=== PATIENT | male | born 1990 | race Caucasian/White ===

== ENCOUNTER 2017-07-16 15:39 | Emergency (ER) | payer SELFPAY ==
[2017-07-16 15:43] VITALS: BP 164/97
--- NOTE | 2017-07-16 16:14 | DR.GENAD ---
HPI - PCP Primary Care Physician: NFD - HPI Comment HPI Comment: WEAK, INCREASE URINATION AND THIRST AND LOWER BACK AND ABDOMINAL DISCOMFORT.RT EAR PAIN WITH DIZZINESS AND HEADACHE. SYMTOMS WORSE TODAY. PATIENT IS ALSO COUGHING WITH MINIMAL SPUTUM. - Complaint/Symptoms Chief Complaint Doctors Comments: ELEVATED BLOOD GLUCOSE, RT EAR PAIN AND POSSIBLE UTI TIMES 5 DAYS. Chief Complaint:: PT. STATES HIS BLOOD SUGAR GOT OUT OF "WACK" LAST WEEK AND HE GOT A UTI. PT. ALSO C/O INNER EAR INFECTION, DIZZINESS, WEAKNESS, AND NAUSEA. - Nurses notes reviewed Nurses Notes Review: Yes - Source History Provided: Patient - Mode of Arrival Mode of Arrival: Ambulatory - Timing Onset of Chief Complaint: 07/11/17 Came on: Gradually - Duration Duration: Constant Duration: Days - Severity Severity: Moderate PMH - PMH Past Medical History: Yes Past Medical History: Diabetes Past Surgical History: Yes Surgical History: Ortho Surgery, Tonsillectomy, Other Past Surgical History Comment: TUBES IN EARS, ADENOIDS - Family History History of Family Medical Conditions: Yes Family Medical History: Diabetes Mellitus, Coronary Artery Disease - Social History Does patient currently use any type of tobacco product: Yes Have you used tobacco products in the last 12 months: Yes Type of Tobacco Use: Cigarettes Does any household member use tobacco: Yes Alcohol Use: Rarely Do you use any recreational Drugs:: No Lives With: Significant Other Lives Where: Home - infectious screening In the last 2 months have you had wt loss of >10#?: NO Have you had fever, night sweats or hemotysis?: No Have you traveled outside the country in the last 6 months?: No Isolation: Standard ROS - Review of Systems Constitutional: Weakness, Fatigue. negative: Chills, Fever Eyes: negative: Eye Pain, Discharge ENTM: Ear Pain, Nose Congestion. negative: Ear Discharge, Hearing Loss, Nose Discharge, Throat Pain Respiratoy: Productive Cough. negative: Short of Breath, Wheezing, Hemoptysis Cardiovascular: negative: Palpitations, Syncope Gastrointestinal/Abdominal: Abdominal Pain, Nausea Genitourinary: Frequency. negative: Hematuria Neurological: Headache, Weakness Musculoskeletal: Back Pain Integumentary: No Symptoms Reported Hematologic/Lymphatic: No Symptoms Reported Endocrine: Increased Thirst, Increased Urine. negative: Flushing All Other Systems: Reviewed and Negative PE - Vital Signs Vitals: Temperature 97.8 F Pulse Rate 108 Respiratory Rate 18 Blood Pressure 164/97 O2 Sat by Pulse Oximetry 100 - General Limitations: No Limitations General Appearance: Alert - Head Head Exam: Normal Inspection - Eyes Eye exam: Normal Appearance - ENT ENT Exam: Normal External Ear Exam External Ear Exam: Normal External Inspection TM/Canal Exam: Right Erythema, Right Canal Tenderness Nose Exam: Normal Nose Exam Mouth Exam: Normal Inspection Throat Exam: Tonsillar Erythema. negative: Tonsillomegaly, Tonsillar Exudate - Neck Neck Exam: Trachea Midline, Lymphadenopathy (RT CERVICAL POST). negative: Tenderness - Chest Chest Inspection: Symmetric Chest Wall Rise - Respiratory Respiratory Exam: Normal Lung Sounds Bilat Respiratory Exam: Bilateral Clear to Auscultation - Cardiovascular Cardiovascular Exam: Regular Rate, Normal Rhythm, Normal Heart Sounds - Abdominal Exam Abdominal Exam: Normal Bowel Sounds, Soft. negative: Tenderness - Extremities Extremities Exam: Normal Inspection - Back Back Exam: Normal Inspection - Neurologic Neurological Exam: Alert, Oriented X3, CN II-XII Intact. negative: Motor Sensory Deficit - Psychiatric Psychiatric Exam: Normal Affect, Normal Mood - Skin Skin Exam: Normal Color [facility] - Additional Information Additional Information Obtained From: Family - Differential Diagnosis Differential Diagnosis: OTITIS MEDIA, BRONCHITIS, PNEUMONIA, UTI, DKA Course - Treatment Treatment: SEE ORDERS. - Education/Counseling Education/Counseling: Patient, Education Educated On: Diagnosis, Needs for Follow Up ROR - Labs Reviewed Laboratory Results Reviewed?: Yes Result Diagrams: 07/16/17 16:30 07/16/17 16:30 Laboratory: WBC 16.3 X10^3/uL (3.6-10.0) H 07/16/17 16:30 RBC 6.31 X10^6/uL (4.7-6.0) H 07/16/17 16:30 Hgb 18.1 g/dL (13.5-18.0) H 07/16/17 16:30 Hct 52.6 % (42.0-54.0) 07/16/17 16:30 MCV 83.2 fL (80.0-100.0) 07/16/17 16:30 MCH 28.6 pg (27.0-34.0) 07/16/17 16:30 MCHC 34.4 g/dL (33.0-35.0) 07/16/17 16:30 RDW 13.6 % (11.6-16.5) 07/16/17 16:30 Plt Count 224 X10^3/uL (150.0-450.0) 07/16/17 16:30 MPV 9.5 fL (7.4-11.0) 07/16/17 16:30 Neut % 65.9 % (42.0-75.0) 07/16/17 16:30 Lymph % 23.7 % (21.0-51.0) 07/16/17 16:30 [place] % 8.9 % (0.0-13.0) 07/16/17 16:30 Eos % 0.8 % (0.9-2.9) L 07/16/17 16:30 Baso % 0.7 % (0.2-1.0) 07/16/17 16:30 Neut # 10.7 x10^3/uL (2.2-4.8) H 07/16/17 16:30 Lymph # 3.9 X10^3/uL (1.3-2.9) H 07/16/17 16:30 [place] # 1.5 x10^3/uL (0.3-0.8) H 07/16/17 16:30 Eos # 0.1 x10^3/uL (0.0-0.2) 07/16/17 16:30 Baso # 0.1 X10^3/uL (0.0-0.1) 07/16/17 16:30 Absolute Nucleated RBC 0.2 /100WBC 07/16/17 16:30 Sodium 136 mmol/L (136-145) 07/16/17 16:30 Corrected Sodium 140 mmol/L (136-145) 07/16/17 16:30 Potassium 4.0 mmol/L (3.5-5.1) 07/16/17 16:30 Chloride 99 mmol/L (98-107) 07/16/17 16:30 Carbon Dioxide 27.9 mmol/L (21-32) 07/16/17 16:30 BUN 5 mg/dL (7-18) L 07/16/17 16:30 Creatinine 0.77 mg/dL (0.70-1.30) 07/16/17 16:30 Est GFR (MDRD) Af Amer > 60 (>60) 07/16/17 16:30 Est GFR (MDRD) Non-Af > 60 (>60) 07/16/17 16:30 Glucose 249 mg/dL (65-99) H 07/16/17 16:30 Calcium 8.9 mg/dL (8.5-10.1) 07/16/17 16:30 Corrected Calcium TNP 07/16/17 16:30 Total Bilirubin 0.30 mg/dL (0.2-1.0) 07/16/17 16:30 AST 14 Units/L (15-37) L 07/16/17 16:30 ALT 42 Units/L (12-78) 07/16/17 16:30 Alkaline Phosphatase 130 Units/L (46-116) H 07/16/17 16:30 Total Protein 8.8 g/dL (6.4-8.2) H 07/16/17 16:30 Albumin 3.5 g/dL (3.4-5.0) 07/16/17 16:30 Globulin 5.3 g/dL (2.5-4.5) H 07/16/17 16:30 Albumin/Globulin Ratio 0.7 Ratio (1.1-2.1) L 07/16/17 16:30 Specimen Type Random urine 07/16/17 16:20 Urine Color Yellow (YELLOW) 07/16/17 16:20 Urine Appearance Clear (CLEAR) 07/16/17 16:20 Urine pH 5.0 (5.0 - 8.0) 07/16/17 16:20 Ur Specific [place] 1.020 (1.000-1.030) 07/16/17 16:20 Urine Protein 3+ (NEGATIVE) 07/16/17 16:20 Urine Glucose (UA) 4+ (NEGATIVE) 07/16/17 16:20 Urine Ketones 1+ (NEGATIVE) 07/16/17 16:20 Urine Occult Blood 1+ (NEGATIVE) 07/16/17 16:20 Urine Nitrite Negative (NEGATIVE) 07/16/17 16:20 Urine Bilirubin Negative (NEGATIVE) 07/16/17 16:20 Urine Urobilinogen Normal (NORMAL) 07/16/17 16:20 Ur Leukocyte Esterase Negative (NEGATIVE) 07/16/17 16:20 Urine RBC Rare /HPF (NONE SEEN) 07/16/17 16:20 Urine WBC None seen /HPF (NONE SEEN) 07/16/17 16:20 Ur Squamous Epith Cells Rare /HPF (NEGATIVE) 07/16/17 16:20 Amorphous Sediment Trace /HPF (NEGATIVE) 07/16/17 16:20 Urine Bacteria Negative /HPF (NEGATIVE) 07/16/17 16:20 Hyaline Casts Rare /LPF (NEGATIVE) 07/16/17 16:20 Ur Culture Indicated? No/not indicated 07/16/17 16:20 Acetone, Semi-Quant Negative (NEGATIVE) 07/16/17 16:30 - XRAY XRAY Interpreted by: Radiologist XRAY Findings: REPORT DISCUSS WITH PATIENT. - Diagnosis Discharge Problem: Bronchitis Otitis media Qualifiers: Otitis media type: suppurative Chronicity: acute Laterality: right Recurrence: not specified as recurrent Spontaneous tympanic membrane rupture: without spontaneous rupture Qualified Code(s): H66.001 - Acute suppurative otitis media without spontaneous rupture of ear drum, right ear - Discharge Plan Disposition: 01 HOME, SELF-CARE Condition: Stable Prescriptions: Amoxicillin & Pot Clavulanate [AUGMENTIN TAB 875 mg/125 mg *] 1 tab PO BID #20 tab - Follow ups/Referrals Follow ups/Referrals: NFD,None [Primary Care Provider] - 3 days - Instructions Instructions: Otitis Media, Adult, [id number], Acute Bronchitis Additional Instructions: RETURN TO ED IF WORSE.
[2017-07-16 16:41] LABS: BASOPHILS # (AUTO) 0.1 X10^3/uL (0.0-0.1); BASOPHILS % (AUTO) 0.7 % (0.2-1.0); EOSINOPHILS # (AUTO) 0.1 x10^3/uL (0.0-0.2); EOSINOPHILS % (AUTO) 0.8 % (0.9-2.9); HEMATOCRIT 52.6 % (42.0-54.0); HEMOGLOBIN 18.1 g/dL (13.5-18.0); LYMPHOCYTES # (AUTO) 3.9 X10^3/uL (1.3-2.9); LYMPHOCYTES % (AUTO) 23.7 % (21.0-51.0); MEAN CORPUSCULAR HEMOGLOBIN 28.6 pg (27.0-34.0); MEAN CORPUSCULAR HGB CONC 34.4 g/dL (33.0-35.0); MEAN CORPUSCULAR VOLUME 83.2 fL (80.0-100.0); MEAN PLATELET VOLUME 9.5 fL (7.4-11.0); MONOCYTES # (AUTO) 1.5 x10^3/uL (0.3-0.8); MONOCYTES % (AUTO) 8.9 % (0.0-13.0); NEUTROPHILS # (AUTO) 10.7 x10^3/uL (2.2-4.8); NEUTROPHILS % (AUTO) 65.9 % (42.0-75.0); PLATELET COUNT 224 X10^3/uL (150.0-450.0); RED BLOOD COUNT 6.31 X10^6/uL (4.7-6.0); RED CELL DISTRIBUTION WIDTH 13.6 % (11.6-16.5); WHITE BLOOD COUNT 16.3 X10^3/uL (3.6-10.0)
--- NOTE | 2017-07-16 16:54 | RAD ---
HISTORY: Subacute nonproductive cough Study: PA and lateral chest Comparison: None Findings: The heart is normal. The lungs are clear. Thoracic spondylosis is noted. IMPRESSION: No acute cardiopulmonary disease. Reported By:
[2017-07-16 17:08] LABS: ALANINE AMINOTRANSFERASE 42 Units/L (12-78); ALBUMIN 3.5 g/dL (3.4-5.0); ALKALINE PHOSPHATASE 130 Units/L (46-116); ASPARTATE AMINO TRANSFERASE 14 Units/L (15-37); BLOOD UREA NITROGEN 5 mg/dL (7-18); CALCIUM 8.9 mg/dL (8.5-10.1); CARBON DIOXIDE 27.9 mmol/L (21-32); CHLORIDE 99 mmol/L (98-107); COR NA(FOR HYPERGLY) 140 mmol/L (136-145); CREATININE 0.77 mg/dL (0.70-1.30); SODIUM 136 mmol/L (136-145); TOTAL PROTEIN 8.8 g/dL (6.4-8.2); eGFR BLACK RACES > 60 (>60); eGFR NON BLACK RACES > 60 (>60)
[2017-07-16 17:10] LABS: SERUM ACETONE NEGATIVE (NEGATIVE)
[2017-07-16 17:13] LABS: APPEARANCE,URINE CLEAR (CLEAR); BILIRUBIN,URINE NEGATIVE (NEGATIVE); BLOOD/HEMOGLOBIN,URINE 1+ (NEGATIVE); COLOR,URINE YELLOW (YELLOW); GLUCOSE, URINE 4+ (NEGATIVE); KETONES,URINE 1+ (NEGATIVE); LEUKOCYTE ESTERASE ,URINE NEGATIVE (NEGATIVE); NITRITES,URINE NEGATIVE (NEGATIVE); PROTEIN,URINE 3+ (NEGATIVE); UROBILINOGEN,URINE NORMAL (NORMAL)
[2017-07-16 17:31] LABS: BACTERIA,URINE NEGATIVE /HPF (NEGATIVE); RBC,URINE RARE /HPF (NONE SEEN); SQUAMOUS EPITHELIAL CELL,UR RARE /HPF (NEGATIVE)
[2017-07-16 17:32] LABS: AMORPHOUS SEDIMENT,UR TRACE /HPF (NEGATIVE); HYALINE CASTS, URINE RARE /LPF (NEGATIVE)
[2017-07-16] MEDS ORDERED: ROCEPHIN VIAL 1 GM IM ONE (17:38)
[2017-07-16] MEDS ORDERED: ROCEPHIN VIAL 1 GM ONE (17:40)
[2017-07-16] MEDS ORDERED: XYLOCAINE 1 % (PLAIN) ONE (17:41)
== END 2017-07-16 17:54 | disposition home or self-care (01) ==
LOC: ER 15:48
DX: J40 Bronchitis, not specified as acute or chronic (principal); H66.001 Acute suppurative otitis media without spontaneous rupture of ear drum, right ear
CPT/HCPCS: 36415; 71046; 80053; 81001; 82009; 85025; 96372; 99283; 99284; J0696; J2001